=== PATIENT | female | born 2000 | race Caucasian/White ===

== ENCOUNTER 2020-09-16 17:39 | Emergency (ER) | payer OTHER ==
--- NOTE | 2020-09-16 18:23 | ER Document Report ---
ED Medical Screen (RME) - General Chief Complaint: Shortness Of Breath Stated Complaint: SHORTNESS OF BREATH Time Seen by Provider: 09/16/20 18:15 Mode of Arrival: Medic Information source: Patient Notes: 20-year-old female presents to ED for complaint of shortness of breath intermittently for 2 days that since 5:00 tonight when she got out of work she is been having constant fears of where she will have periods where she cannot breathe for a second or 2. She stated she was having it right now while I was listening to her lungs. Lungs were clear she was taking regular normal breaths. There was no wheezing noted. She states she continues to have this and she is very scared. I told her we will get a chest x-ray flu test and a Covid test to reassure her but that her lungs were very clear at this time. Patient is alert oriented respirations regular nonlabored speaking in full sentences. She did come by EMS. I have greeted and performed a rapid initial assessment of this patient. A comprehensive ED assessment and evaluation of the patient, analysis of test results and completion of medical decision making process will be conducted by an additional ED providers. Physical Exam - Vital signs Vitals: Temp Pulse Resp BP Pulse Ox 98.7 F 98 20 127/78 H 100 09/16/20 17:50 09/16/20 17:50 09/16/20 17:50 09/16/20 17:50 09/16/20 17:50 Course - Vital Signs Vital signs: Temp Pulse Resp BP Pulse Ox 98.7 F 98 20 127/78 H 100 09/16/20 17:50 09/16/20 17:50 09/16/20 17:50 09/16/20 17:50 09/16/20 17:50
--- NOTE | 2020-09-16 19:17 | RADIOLOGY REPORT (SQ) ---
EXAM DESCRIPTION: CHEST SINGLE VIEW IMAGES COMPLETED DATE/TIME: 09/16/2020 7:09 pm REASON FOR STUDY: Frequent peers of shortness of breath COMPARISON: None. EXAM PARAMETERS: NUMBER OF VIEWS: One view. TECHNIQUE: Single frontal radiographic view of the chest acquired. RADIATION DOSE: NA LIMITATIONS: None. FINDINGS: LUNGS AND PLEURA: No opacities, masses or pneumothorax. No pleural effusion. MEDIASTINUM AND HILAR STRUCTURES: No masses. Contour normal. HEART AND VASCULAR STRUCTURES: Heart normal in size. Normal vasculature. BONES: No acute findings. HARDWARE: None in the chest. OTHER: No other significant finding. IMPRESSION: NO ACUTE RADIOGRAPHIC FINDING IN THE CHEST. TECHNICAL DOCUMENTATION: JOB ID: [id number] 2010 [employer]- All Rights Reserved Reading location - IP/workstation name: [email or web address]
--- NOTE | 2020-09-16 23:39 | ER Document Report ---
ED Respiratory Problem - General Chief Complaint: Shortness Of Breath Stated Complaint: SHORTNESS OF BREATH Time Seen by Provider: 09/16/20 18:15 Mode of Arrival: Medic - HPI Notes: Patient is a 20-year-old female with no significant past medical history who presents with an episode of shortness of breath. Patient states that she was driving today and pulled into her driveway when she felt like she could not breathe for several seconds. This happened to her yesterday as well. Currently she is asymptomatic. She has no chest pain or shortness of breath. Patient thinks she may have had a panic attack. She is on control. She has never had a PE or DVT. Patient states she was tested for COVID-19 several months ago and it was negative. She is not having any cough or fever. No diarrhea, nausea, or vomiting. - Related Data Allergies/Adverse Reactions: No Known Allergies Allergy (Unverified 09/16/20 20:35) Past Medical History - General Information source: Patient, Relative - Social History Smoking Status: Never Smoker Frequency of alcohol use: None Drug Abuse: None Family History: Reviewed & Not Pertinent Review of Systems - Review of Systems Notes: CONSTITUTIONAL: No fever, fatigue or weight loss. SKIN: No rash. HENT: No congestion, ear pain, or sore throat. EYES: No recent vision problems or eye pain. ENDOCRINE: No thyroid problems. No polyuria or polydipsia. CARDIOVASCULAR: No chest pain or edema. RESPIRATORY: No cough, congestion, or wheezing. Positive for 2 episodes of shortness of breath. GASTROINTESTINAL: No abdominal pain, nausea, vomiting, bloody stools or diarrhea. GENITOURINARY: No dysuria. MUSCULOSKELETAL: No joint pain or swelling. LYMPHATIC: No swollen glands. NEUROLOGIC: No seizures. No headache, focal weakness or sensory changes. HEMATOLOGIC: No unusual bruising or bleeding. PSYCHIATRIC: No depression or anxiety. Physical Exam - Vital signs Vitals: Temp Pulse Resp BP Pulse Ox 98.7 F 98 20 127/78 H 100 09/16/20 17:50 09/16/20 17:50 09/16/20 17:50 09/16/20 17:50 09/16/20 17:50 - General General appearance: Appears well Notes: VITAL SIGNS: Within normal limits. GENERAL: No acute distress, non-toxic appearance. HEAD: Normal with no signs of head trauma. EYES: PERRLA, EOMI, conjunctiva normal, no discharge. EARS: Hearing grossly intact. NOSE: Normal. NECK: Normal range of motion, no tenderness, supple, no lymphadenopathy, No adenopathy, no JVD. CHEST: Clear breath sounds bilaterally. No wheezes, rales, or rhonchi. CARDIAC: Regular rate and rhythm. S1 and S2, without murmurs, gallops, or rubs. VASCULAR: No Edema. Peripheral pulses normal and equal in all extremities. ABDOMEN: Normal and soft with no tenderness, no masses or pulsatile masses. GENITOURINARY: Normal, No tenderness LYMPATHTIC: No lymphadenopathy noted. MUSCULOSKELETAL: Good range of motion of all major joints. Extremities without clubbing, cyanosis or edema. NEUROLOGICAL: Alert and oriented x 3. No focal sensory or strength deficits. Speech normal. Follows commands appropriately. PSYCHIATRIC: Normal Affect, judgement and mood. SKIN: Normal appearance with no rashes or lesions. Course - Re-evaluation Re-evalutation: 09/16/20 23:38 Patient appears well on exam. She is watching TV. I did offer Covid testing but she declined because she already been tested. Patient states she is not having any symptoms. She is on Nexplanon, I will obtain a D-dimer to evaluate for a PE. Currently she is asymptomatic. I will also check electrolytes and an EKG. patient's work-up is unremarkable. D-dimer is normal so I have low suspicion for PE. Patient is concerned that she could be having anxiety. I informed her that she should follow-up with her PCP. She was given strict return precautions for any recurrence of symptoms. Patient is very agreeable to the plan. She continues to be nontoxic and in no acute distress. 09/17/20 02:12 - Vital Signs Vital signs: Temp Pulse Resp BP Pulse Ox 98.8 F 67 16 125/68 100 09/17/20 01:05 09/17/20 01:05 09/17/20 01:05 09/17/20 01:05 09/17/20 01:05 - Laboratory Result Diagrams: 09/16/20 23:51 09/16/20 23:51 Laboratory results interpreted by me: 09/16/20 23:51 Sodium 135.9 L Discharge - Discharge Clinical Impression: Shortness of breath Condition: Stable Disposition: HOME, SELF-CARE Instructions: Dyspnea, Nonspecific ([facility]) Additional Instructions: Please follow-up with your family doctor. Please return to the ER for any recurrence of shortness of breath, any chest pain, any other concerning symptoms.
[2020-09-17 00:06] LABS: ABSOLUTE BASOPHILS # (AUTO) 0.1 10^3/uL (0.0-0.2); ABSOLUTE EOSINOPHILS # (AUTO) 0.1 10^3/uL (0.0-0.6); ABSOLUTE LYMPHOCYTES (AUTO) 3.4 10^3/uL (0.5-4.7); ABSOLUTE MONOCYTES (AUTO) 0.6 10^3/uL (0.1-1.4); ABSOLUTE NEUT (AUTO) 4.3 10^3/uL (1.7-8.2); BASOPHILS % (AUTO) 1.2 % (0-2); EOSINOPHILS % (AUTO) 1.1 % (0-6); HEMATOCRIT 36.7 % (36.0-47.0); HEMOGLOBIN 13.1 g/dL (12.0-15.5); LYMPHOCYTES % (AUTO) 40.1 % (13-45); MEAN CORPUSCULAR HEMOGLOBIN 29.1 pg (27.0-33.4); MEAN CORPUSCULAR HGB CONC 35.7 g/dL (32.0-36.0); MEAN CORPUSCULAR VOLUME 82 fl (80-97); MONOCYTES % (AUTO) 7.2 % (3-13); PLATELET COUNT 248 10^3/uL (150-450); SEGMENTED NEUTROPHILS % (AUTO) 50.4 % (42-78); TOTAL CELLS COUNTED % (AUTO) 100 %; WHITE BLOOD COUNT 8.5 10^3/uL (4.0-10.5)
[2020-09-17 00:26] LABS: ALBUMIN 3.9 g/dL (3.5-5.0); ALKALINE PHOSPHATASE 80 U/L (38-126); ANION GAP 8 (5-19); ASPARTATE AMINO TRANSFERASE 35 U/L (14-36); BILIRUBIN,DIRECT 0.1 mg/dL (0.0-0.4); BILIRUBIN,TOTAL 0.5 mg/dL (0.2-1.3); BLOOD UREA NITROGEN 12 mg/dL (7-20); CALCIUM 9.7 mg/dL (8.4-10.2); CARBON DIOXIDE 24 mmol/L (22-30); CHLORIDE 104 mmol/L (98-107); GLUCOSE 83 mg/dL (75-110); POTASSIUM 4.2 mmol/L (3.6-5.0); TOTAL PROTEIN 7.5 g/dL (6.3-8.2)
[2020-09-17 00:35] LABS: A TYPE INFLUENZA AG NEGATIVE (NEGATIVE); B INFLUENZA AG NEGATIVE (NEGATIVE)
[2020-09-17 01:07] VITALS: BP 125/68
--- NOTE | 2020-09-17 19:05 | EKG REPORT ---
SEVERITY:- NORMAL ECG - SINUS RHYTHM : Confirmed by: Niranjan Garrido MD 17-Sep-2020 19:03:43
== END 2020-09-17 01:05 | disposition home or self-care (01) ==
LOC: ER 17:39
DX: R06.02 Shortness of breath (principal); Z97.5 Presence of (intrauterine) contraceptive device
CPT/HCPCS: 36415; 71045; 80053; 81025; 85025; 85379; 87804; 93005; 93010; 99285